=== PATIENT | male | born 1990 | race Caucasian/White ===

== ENCOUNTER 2020-03-28 14:27 | Emergency (ER) | payer SELFPAY | END 2020-03-28 15:16 | disposition home or self-care (01) | LOC: MADERS 14:27 | DX: R43.8 Other disturbances of smell and taste (principal); Z20.822 Contact with and (suspected) exposure to COVID-19; F17.210 Nicotine dependence, cigarettes, uncomplicated | CPT/HCPCS: 99283 ==

== ENCOUNTER 2021-02-01 18:43 | Emergency (ER) | payer SELFPAY ==
[2021-02-01 19:23] LABS: Bilirubin Negative (Negative); Blood, Urine Trace (Negative); Clarity Cloudy (Clear); Glucose, Urine (Dipstick) Negative (Negative); Ketone, Urine Negative (Negative); Leukocyte Large (Negative); Nitrite Negative (Negative); Protein, Urine (Dipstick) Negative (Neg-Trace)
[2021-02-01 19:24] LABS: Bacteria/HPF 3+ HPF (None Seen); RBC/HPF 0-3 HPF (0-3); Squamous Epithelial 0-3 HPF (0-3); WBC/HPF 21-50 HPF (0-3)
[2021-02-01] MEDS ORDERED: Ciprofloxacin 500 MG TAB ONE (19:51)
[2021-02-01] MEDS ORDERED: Phenazopyridine HCl 97.5 MG TABLET ONE (19:51)
== END 2021-02-01 20:04 | disposition home or self-care (01) ==
LOC: MADERS 18:43
DX: N39.0 Urinary tract infection, site not specified (principal); F17.210 Nicotine dependence, cigarettes, uncomplicated
CPT/HCPCS: 81003; 81015; 99283

== ENCOUNTER 2021-12-04 09:29 | Outpatient (CLI) | payer BC | END 2021-12-04 09:30 | disposition home or self-care (01) | LOC: MADRAD 09:29 | PROVIDERS: ATTEND Registered Nurse | DX: M25.562 Pain in left knee (principal) ==

== ENCOUNTER 2022-11-04 21:17 | Emergency (ER) | payer OTHER ==
[2022-11-04 21:56] LABS: Bilirubin Negative (Negative); Blood, Urine Moderate (Negative); Clarity Turbid (Clear); Glucose, Urine (Dipstick) Negative (Negative); Ketone, Urine Trace mg/dL (Negative); Leukocyte Small (Negative); Nitrite Positive (Negative); Protein, Urine (Dipstick) 100 mg/dL (Neg-Trace); pH, Urine 5.5 (5.0-9.0)
[2022-11-04 22:06] LABS: #Basophils 0.1 thou/uL (0.0-0.2); #Eosinphils 0.1 thou/uL (0.0-0.7); #Lymphocytes 1.4 thou/uL (1.20-3.40); #Monocytes 0.8 thou/uL (0.11-0.59); #Neutrophils 6.5 thou/uL (1.40-6.50); %Basophils 1.4 % (0.0-1.0); %Eosinophils 1.4 % (0.0-10.0); %Lymphocytes 15.4 % (21.0-51.0); %Monocytes 9.2 % (0.0-10.0); %Neutrophils 72.6 % (42.0-75.0); Hematocrit 47.1 % (42.0-52.0); Hemoglobin 16.4 g/dL (14.0-18.0); Mean Corpuscular HGB CONC 34.8 g/dL (32.0-36.0); Mean Corpuscular Hemoglobin 30.2 pg (27.0-31.0); Mean Corpuscular Volume 86.7 fl (78.0-98.0); Mean Platelet Volume 9.8 fL (7.4-10.4); Platelet Count 246 10x3/uL (130-400); RBC Distribution Width 11.4 % (11.5-14.5); Red Blood Cell (RBC) Count 5.44 mill/uL (4.70-6.10); White Blood Cell (WBC) Count 8.9 10x3/uL (4.8-10.8)
[2022-11-04 22:06] LABS: Specific Gravity, Urine 1.026 (1.002-1.036)
[2022-11-04 22:07] LABS: Bacteria/HPF 3+ HPF (None Seen); CAUTI Indications for Culture Pelvic or flank pain; RBC/HPF 21-50 HPF (0-3); Urine Culture Reflex Yes Yes; WBC/HPF Greater than 50 HPF (0-3)
[2022-11-04] MEDS ORDERED: Morphine 4 MG/ML VIAL ONE (22:19)
[2022-11-04] MEDS ORDERED: Lactated Ringer's 1,000 ML ONE (22:20)
[2022-11-04] MEDS ORDERED: Ondansetron PF 4 MG/2 ML Vial ONE (22:20)
[2022-11-04] MEDS ORDERED: Dicyclomine 20 MG/2 ML VIAL ONE (22:20)
[2022-11-04] MEDS ORDERED: Ketorolac Tromethamine 30 MG/ML VIAL ONE (22:20)
[2022-11-04 22:22] LABS: ALT (SGPT) 102 U/L (8-55); AST (SGOT) 35 U/L (5-34); Albumin 4.3 g/dL (3.5-5.0); Alkaline Phosphatase 71 U/L (40-110); Anion Gap 16 mmol/L (10-20); BUN (Urea Nitrogen) 17 mg/dL (8.9-20.6); Bilirubin, Total 0.6 mg/dL (0.2-1.2); Calc. Creatinine Clearance 0 mL/min (70-130); Calcium 9.5 mg/dL (7.8-10.44); Carbon Dioxide 24 mmol/L (22-29); Chloride 102 mmol/L (98-107); Estimated GFR 85; Glucose 136 mg/dL (70-105); Lipase 31 U/L (8-78); Protein, Total 7.3 g/dL (6.0-8.3); Sodium 138 mmol/L (136-145)
[2022-11-04 23:32] LABS: PTT 30.1 sec (22.9-36.1); Prothrombin Time 13.3 sec (12.0-14.7)
== END 2022-11-04 23:32 | disposition short-term general hospital (02) ==
LOC: MADERS 21:17
DX: N39.0 Urinary tract infection, site not specified (principal); K80.20 Calculus of gallbladder without cholecystitis without obstruction; R74.01 Elevation of levels of liver transaminase levels; F17.210 Nicotine dependence, cigarettes, uncomplicated
CPT/HCPCS: 74177; 80053; 81001; 83605; 83690; 85025; 85610; 85730; 87040; 87077; 87086; 87186; 94760; 96361; 96372; 96374; 96375; J1885; J2270; J2405; J7120